=== PATIENT | male | born 1970 | race Asian ===

== ENCOUNTER 2016-10-11 11:22 | Outpatient (CLI) | payer OTHER ==
[~2016-10-11 11:22] MED LIST: ACET7.5T70 PO; HYDR25TA15 PO; INSU100I2 SC; METF500T PO; TRAZODONE150 MG PO
== END 2016-10-11 19:32 | disposition home or self-care (01) ==
LOC: RAD 11:22
DX: R05 Cough (principal)

== ENCOUNTER 2019-03-18 13:18 | Outpatient (CLI) | payer BC | END 2019-03-18 23:48 | disposition home or self-care (01) | LOC: RAD 13:18 | DX: M48.02 Spinal stenosis, cervical region (principal) ==

== ENCOUNTER 2019-04-07 12:05 | Outpatient (CLI) | payer BC | END 2019-04-07 23:59 | disposition home or self-care (01) | LOC: MRI 12:05 | DX: M54.12 Radiculopathy, cervical region (principal) ==

== ENCOUNTER 2022-03-02 18:50 | Emergency (ER) | payer BC ==
[~2022-03-02] VITALS: Ht 182.9 cm; Wt 90.3 kg
[2022-03-02 19:29] LABS: PLATELET COUNT 289 K/uL (142-355)
[2022-03-02 19:32] LABS: POTASSIUM 3.8 mmol/L (3.6-5.2)
[2022-03-02 19:42] LABS: PARTIAL THROMBOPLASTIN TIME 27.2 SECONDS (24.5-33.6)
[2022-03-02 20:10] VITALS: BP 145/87; TEMP 98.8
== END 2022-03-02 20:10 | disposition home or self-care (01) ==
LOC: ED 18:50
PROVIDERS: Hospitalist
DX: R06.02 Shortness of breath (principal); R05.8 Other specified cough; F41.8 Other specified anxiety disorders; Z20.822 Contact with and (suspected) exposure to COVID-19
CPT/HCPCS: 36415; 80053; 82550; 83880; 84484; 85027; 85610; 85730; 87635; 93005; 99283; U0003

== ENCOUNTER 2022-05-16 15:12 | Outpatient (CLI) | payer BC ==
[2022-05-16 15:48] LABS: PLATELET COUNT 269 K/uL (142-355)
[2022-05-16 16:01] LABS: POTASSIUM 4.3 mmol/L (3.6-5.2)
== END 2022-05-16 19:14 | disposition home or self-care (01) ==
LOC: LABW 15:12
PROVIDERS: ATTEND Nurse Practitioner Family
DX: R10.812 Left upper quadrant abdominal tenderness (principal); U07.1 COVID-19
CPT/HCPCS: 36415; 80053; 82150; 83690; 85027